=== PATIENT | male | born 1935 | race Caucasian/White ===

== ENCOUNTER 2018-01-27 18:10 | Observation (INO) | payer OTHER ==
--- NOTE | 2018-01-27 18:19 | EDPHY ---
H & P Stated Complaint: palpitations and light chest pressure for 2 days. Time Seen by Provider: 01/27/18 18:18 HPI/ROS: CHIEF COMPLAINT: Palpitations, weakness, chest pressure HISTORY OF PRESENT ILLNESS: The patient presents to the ED with a 2 day history of palpitations. Today the patient developed chest pressure that began at 5:00 p.m.. The patient reports he currently is experiencing no symptoms of chest pressure. He does have a history of coronary artery disease status post CABG 2000. He reports uneventful cardiac follow-up since that time. The patient did have a history of an upper respiratory infection approximately 2 weeks ago. The patient does feel generalized malaise and fatigue. The patient denies fever or productive cough. He denies asymmetric calf pain or swelling. The patient denies additional acute complaints. REVIEW OF SYSTEMS: A comprehensive 10 point review of systems is otherwise negative aside from elements mentioned in the history of present illness. Source: Patient Exam Limitations: No limitations - Personal History Current Tetanus Diphtheria and Acellular Pertussis (TDAP): Yes - Medical/Surgical History Hx Asthma: No Hx Chronic Respiratory Disease: No Hx Diabetes: No Hx Cardiac Disease: Yes Hx Renal Disease: No Hx Cirrhosis: No Hx Alcoholism: No Hx HIV/AIDS: No Hx Splenectomy or Spleen Trauma: No Other PMH: Bypass in 2000. HTN. - Social History Smoking Status: Never smoked - Physical Exam Exam: General Appearance: Alert, no distress Eyes: Pupils equal and round no pallor or injection ENT, Mouth: Mucous membranes moist Respiratory: There are no retractions, lungs are clear to auscultation Cardiovascular: Regular rate and rhythm Gastrointestinal: Abdomen is soft and nontender, no masses, bowel sounds normal Neurological: A&O, normal motor function, normal sensory exam, normal cranial nerves Skin: Warm and dry, no rashes Musculoskeletal: Neck is supple nontender Extremities: symmetrical, full range of motion Constitutional: Initial Vital Signs Temperature (C) 36.9 C 01/27/18 18:12 Heart Rate 97 01/27/18 18:12 Respiratory Rate 16 01/27/18 18:12 Blood Pressure 162/96 H 01/27/18 18:12 O2 Sat (%) 95 01/27/18 18:12 O2 Delivery Mode Room Air Allergies/Adverse Reactions: No Known Allergies Allergy (Unverified 04/27/15 11:33) Home Medications: Medication Instructions Recorded Hydralazine HCl 01/27/18 Lisinopril 01/27/18 Norvasc 10 mg (*) 01/27/18 Medical Decision Making - Diagnostics EKG Interpretation: EKG: Complete interpretation has been separately recorded in the [facility] archive. Summary impression: Sinus tachycardia, rate 97, multiple PVCs, no ST segment elevation depression noted Imaging Results: Imaging Impressions Chest X-Ray 01/27/18 19:00 Impression: No evidence of acute intrathoracic pathology. ED Course/Re-evaluation: The patient presents to the ED with chest pressure that began at 5 o'clock this evening. The patient does have a history of coronary artery disease. He reports he has had no history of angina since his bypass. The patient reports he has just felt generally poor and has had a significant increase in palpitations. The patient was noted to have PVCs on his EKG without evidence of obvious ischemia. He was noted to have multiple PVCs while on a color television console monitor. The patient's initial troponin is normal. Given the patient's history of coronary artery disease as well as unexplained chest pressure and frequent ventricular ectopy I do feel it would be reasonable to rule out the patient for myocardial infarction this evening. Consultation was made with Dr. Tyler Salomon from the hospitalist service who will admit the patient. Differential Diagnosis: Differential diagnosis considered includes acute coronary syndrome, arrhythmia, pericarditis, esophageal spasm, dehydration, viral syndrome, pneumonia - Data Points Laboratory Results: Laboratory Results 01/27/18 18:45 01/27/18 18:45 01/27/18 01/27/18 18:45 18:45 WBC 8.83 10^3/uL 10^3/uL (3.80-9.50) RBC 4.93 10^6/uL 10^6/uL (4.40-6.38) Hgb 15.3 g/dL g/dL (13.7-17.5) Hct 43.6 % % (40.0-51.0) MCV 88.4 fL fL (81.5-99.8) MCH 31.0 pg pg (27.9-34.1) MCHC 35.1 g/dL g/dL (32.4-36.7) RDW 13.1 % % (11.5-15.2) Plt Count 275 10^3/uL 10^3/uL (150-400) MPV 10.9 fL fL (8.7-11.7) Neut % (Auto) 50.4 % % (39.3-74.2) Lymph % (Auto) 37.0 % % (15.0-45.0) [place] % (Auto) 10.8 % % (4.5-13.0) Eos % (Auto) 1.0 % % (0.6-7.6) Baso % (Auto) 0.6 % % (0.3-1.7) Nucleat RBC Rel Count 0.0 % % (0.0-0.2) Absolute Neuts (auto) 4.45 10^3/uL 10^3/uL (1.70-6.50) Absolute Lymphs (auto) 3.27 10^3/uL H 10^3/uL (1.00-3.00) Absolute Monos (auto) 0.95 10^3/uL H 10^3/uL (0.30-0.80) Absolute Eos (auto) 0.09 10^3/uL 10^3/uL (0.03-0.40) Absolute Basos (auto) 0.05 10^3/uL 10^3/uL (0.02-0.10) Absolute Nucleated RBC 0.00 10^3/uL 10^3/uL (0-0.01) Immature Gran % 0.2 % % (0.0-1.1) Immature Gran # 0.02 10^3/uL 10^3/uL (0.00-0.10) Sodium 130 mEq/L L mEq/L (135-145) Potassium 3.6 mEq/L mEq/L (3.5-5.2) Chloride 90 mEq/L L mEq/L (97-110) Carbon Dioxide 27 mEq/l mEq/l (22-31) Anion Gap 13 mEq/L mEq/L (8-16) BUN 14 mg/dL mg/dL (7-23) Creatinine 0.8 mg/dL mg/dL (0.7-1.3) Estimated GFR > 60 Glucose 100 mg/dL mg/dL (70-100) Calcium 9.7 mg/dL mg/dL (8.5-10.4) Troponin I < 0.012 ng/mL ng/mL (0.000-0.034) Departure - Departure Disposition: Home, Routine, Self-Care Clinical Impression: Chest pain, PVCs (premature ventricular contractions) Condition: Good
--- NOTE | 2018-01-27 18:20 | CPEKG ---
Heart Rate: 97 RR Interval: 619 P-R Interval: 208 QRSD Interval: 102 QT Interval: 356 QTC Interval: 452 P [place]: 62 QRS [place]: 34 T Wave [place]: 67 EKG Severity - ABNORMAL ECG - EKG Impression: SINUS TACHYCARDIA EKG Impression: MULTIFORM VENTRICULAR PREMATURE COMPLEXES EKG Impression: PROBABLE LEFT ATRIAL ABNORMALITY Electronically Signed By: Filiberto Bello 27-Jan-2018 18:51:35
[2018-01-27 19:08] LABS: PLATELET COUNT 275 10^3/uL (150-400)
[2018-01-27] MEDS ORDERED: ACETAMINOPHEN 325 MG TAB PO PRN (22:23)
[2018-01-27] MEDS ORDERED: ONDANSETRON 4 MG/2 ML VIAL IVP PRN (22:23)
[2018-01-27] MEDS ORDERED: ONDANSETRON DISINTEGRATING 4 MG TAB PO PRN (22:23)
--- NOTE | 2018-01-28 01:24 | PDGENHP ---
History and Physical - Chief Complaint Chest pressure - History of Present Illness 82 yo M w/ hx of HTN and CAD s/p CABG in 2000 presents after episode of chest pressure. Patient has been recovering from a cold for about 10 days. Today he went for a walk and afterwards experienced an episode of chest pressure. This was centrally located without associated symptoms. The pain resolved without intervention. He has not had similar chest discomfort in the past and has been chest pain free since his bypass in 2000. He is followed by Dr. Gunnar Mars at [facility] and would prefer to defer any further testing until he can see him in clinic. History Information - Allergies/Home Medication List Allergies/Adverse Reactions: No Known Allergies Allergy (Unverified 04/27/15 11:33) Home Medications: Aspirin EC [Aspirin EC 81 mg (*)] 81 mg PO HS 01/27/18 [Last Taken 01/26/18] Hydrochlorothiazide [HCTZ (*)] 25 mg PO DAILY 01/27/18 [Last Taken 01/26/18] Lisinopril [Zestril 40 mg (*)] 40 mg PO HS 01/27/18 [Last Taken 01/26/18] Simvastatin [Zocor] 40 mg PO HS 01/27/18 [Last Taken 01/26/18] amLODIPine BESYLATE [Norvasc 10 mg (*)] 10 mg PO DAILY 01/27/18 [Last Taken 11/03] I have personally reviewed and updated: family history, medical history - Past Medical History coronary artery disease, hypertension - Surgical History Reports: coronary bypass surgery (2000) - Family History Positive for: CAD - Social History Smoking Status: Former smoker Review of Systems Review of Systems: ROS: 10pt was reviewed & negative except for what was stated in HPI & below Physical Exam Physical Exam: Temp Pulse Resp BP Pulse Ox 36.5 C 80 13 127/96 H 97 01/27/18 21:53 01/27/18 21:53 01/27/18 21:53 01/27/18 21:53 01/27/18 21:53 Constitutional: no apparent distress, not in pain Eyes: PERRL, EOMI Ears, Nose, Mouth, Throat: moist mucous membranes, no oral mucosal ulcers Cardiovascular: regular rate and rhythym, no murmur, rub, or gallop Respiratory: no respiratory distress, clear to auscultation Gastrointestinal: normoactive bowel sounds, soft, non-tender abdomen Skin: warm, normal color Musculoskeletal: full muscle strength, no muscle tenderness Neurologic: CN II-XII Intact Psychiatric: interacting appropriately, not anxious Lab Data & Imaging Review 01/27/18 18:45 01/27/18 18:45 WBC 8.83 10^3/uL (3.80-9.50) 01/27/18 18:45 RBC 4.93 10^6/uL (4.40-6.38) 01/27/18 18:45 Hgb 15.3 g/dL (13.7-17.5) 01/27/18 18:45 Hct 43.6 % (40.0-51.0) 01/27/18 18:45 MCV 88.4 fL (81.5-99.8) 01/27/18 18:45 MCH 31.0 pg (27.9-34.1) 01/27/18 18:45 MCHC 35.1 g/dL (32.4-36.7) 01/27/18 18:45 RDW 13.1 % (11.5-15.2) 01/27/18 18:45 Plt Count 275 10^3/uL (150-400) 01/27/18 18:45 MPV 10.9 fL (8.7-11.7) 01/27/18 18:45 Neut % (Auto) 50.4 % (39.3-74.2) 01/27/18 18:45 Lymph % (Auto) 37.0 % (15.0-45.0) 01/27/18 18:45 [place] % (Auto) 10.8 % (4.5-13.0) 01/27/18 18:45 Eos % (Auto) 1.0 % (0.6-7.6) 01/27/18 18:45 Baso % (Auto) 0.6 % (0.3-1.7) 01/27/18 18:45 Nucleat RBC Rel Count 0.0 % (0.0-0.2) 01/27/18 18:45 Absolute Neuts (auto) 4.45 10^3/uL (1.70-6.50) 01/27/18 18:45 Absolute Lymphs (auto) 3.27 10^3/uL (1.00-3.00) H 01/27/18 18:45 Absolute Monos (auto) 0.95 10^3/uL (0.30-0.80) H 01/27/18 18:45 Absolute Eos (auto) 0.09 10^3/uL (0.03-0.40) 01/27/18 18:45 Absolute Basos (auto) 0.05 10^3/uL (0.02-0.10) 01/27/18 18:45 Absolute Nucleated RBC 0.00 10^3/uL (0-0.01) 01/27/18 18:45 Immature Gran % 0.2 % (0.0-1.1) 01/27/18 18:45 Immature Gran # 0.02 10^3/uL (0.00-0.10) 01/27/18 18:45 Sodium 130 mEq/L (135-145) L 01/27/18 18:45 Potassium 3.6 mEq/L (3.5-5.2) 01/27/18 18:45 Chloride 90 mEq/L (97-110) L 01/27/18 18:45 Carbon Dioxide 27 mEq/l (22-31) 01/27/18 18:45 Anion Gap 13 mEq/L (8-16) 01/27/18 18:45 BUN 14 mg/dL (7-23) 01/27/18 18:45 Creatinine 0.8 mg/dL (0.7-1.3) 01/27/18 18:45 Estimated GFR > 60 01/27/18 18:45 Glucose 100 mg/dL (70-100) 01/27/18 18:45 Calcium 9.7 mg/dL (8.5-10.4) 01/27/18 18:45 Troponin I < 0.012 ng/mL (0.000-0.034) 01/27/18 18:45 Imaging Review: Imaging Impressions Chest X-Ray 01/27/18 19:00 Impression: No evidence of acute intrathoracic pathology. Visualized and Interpreted Chest x-ray results: Yes Visualized and Interpreted EKG results: Yes EKG Interpretation: Positive for: normal sinsus rhythm, other (Frequent PVCs) Assessment & Plan Assessment: 82 yo M w/ hx of HTN and CAD s/p CABG presents after episode of chest pressure. Plan: 1. Chest pain - Isolated episode of chest pressure occurring after a long walk. Patient has no history of stable angina and has had several normal stress tests in recent years per his report. Initial testing here negative for objective evidence of acute ischemia. ECG notable for frequent PVCs. Patient would like to defer additional testing until he can see his airline reservation agent Dr. Gunnar Mars in clinic. - Admit to PCU for observation - Monitor on telemetry, trend cardiac enzymes - Will defer inpatient risk stratification per patient wishes, although I did recommend this. If telemetry or AM enzymes are concerning, would revisit this conversation. 2. HTN - Well controlled on home medications Diet - NPO @ [place] pending ACS r/o Code - Full Ppx - LMWH Dispo - Admit under observation status
[2018-01-28 05:29] LABS: PLATELET COUNT 226 10^3/uL (150-400)
[2018-01-28 07:59] VITALS: BP 130/84; PULSE 80; RESP 16; TEMP 97.8; O2SAT 97
[2018-01-28] MEDS ORDERED: ENOXAPARIN 40 MG/0.4 ML SYR SC SCH (09:00)
--- NOTE | 2018-01-28 14:22 | ASDISCHSUM ---
Discharge Information Plan Status:Home with No Needs Medically Cleared to Leave:01/28/2018 Discharge Date:01/28/2018 10:45 AM CM D/C Disposition:Home, Routine, Self-Care ADT D/C Disposition:Home, Routine, Self-Care Projected Discharge Date:01/28/2018 10:45 AM Transportation at D/C:Family Discharge Delay Reason: Follow-Up Date:01/28/2018 10:45 AM Discharge Slot: Final Diagnosis: Placement Information Patient Contact Information Contact Name:CARMEN Relationship: Address:[address] Work Phone: City:[place] Alternate Phone: State/Zip Code:[place] [address] Email: Financial Information Financial Class:Medicare Advantage Plans Primary Plan Desc:[facility] ADVANTAGE PLANS Primary Plan Number:[id number] Secondary Plan Desc: Secondary Plan Number: Assessment Information Case Management Discharge Plan Note Case Management Discharge Discharge Order Complete? Answers: Yes Patient to Obtain Answers: Independently Medications Transportation Arranged Answers: Family/Friends Family Notified Answers: Yes Notes: in room Discharge Comments Notes: 01/28/2018 Case Management Note Met w/pt and Cynthia [phone]. Pt lives in a condo in [facility]. His does the majority of the driving. There are no difficulties getting to the grocery or preparing meals. There are no case management d/c needs identified. Pt to d/c independent with to transport. Pt to follow up as directed by medical providers. Date Signed: 01/28/2018 09:59 AM Electronically Signed By:Nicole Cervantes RN Intervention Information
[2018-01-28] MEDS ORDERED: ASPIRIN EC 81 MG TAB PO SCH (21:00)
--- NOTE | 2018-01-28 22:08 | GDS ---
[f rep st] DISCHARGE SUMMARY DISCHARGE DIAGNOSES: 1. Chest pain thought noncardiac. 2. Coronary artery disease. 3. Hypertension. HISTORY OF PRESENT ILLNESS: An 82-year-old male, with a history of coronary artery disease, status p ost CABG in 2000, who presents with atypical chest pain. For details of patient's initial presentati on, please see the history and physical dated 01/27/2018. CONSULTATIVE SERVICES: None. PROCEDURES: None. HOSPITAL COURSE: Chest pain. Patient presented with atypical complaint of chest pain. Patient had a preceding cold and then symptoms. Presented for evaluation. He was ruled out with serial troponin s and EKGs. He is followed closely by Dr. Gunnar Mars at [facility] to have any additional risk stratification or followup performed by his primary member services coordinator. Teri verde remained stable on telemetry, was chest pain free the morning after admission and per his vincent ce, was discharged to follow with Dr. Mars in the outpatient setting. On discharge, he is continued on his aspirin, hydrochlorothiazide, lisinopril, Zocor, and Norvasc. H is vital signs were normal on the day of discharge. MEDICATIONS: No changes were made to his home medications. PENDING STUDIES: At the time of the dictation are none. FOLLOWUP APPOINTMENTS: Include in the next 5-[address] Mars for his first post dispositio n followup and discussions related to risk stratification. I spent greater than 30 minutes in the planning and coordination of this discharge. /[id number]/MODL
[2018-01-29] MEDS ORDERED: HYDROCHLOROTHIAZIDE 25 MG TAB PO SCH (09:00)
== END 2018-01-28 10:45 | disposition home or self-care (01) ==
LOC: EDUNIT# → F2W 21:43
PROVIDERS: ADMIT Student in an Organized Health Care Education/Training Program; ATTEND Hospitalist
DX: R07.9 Chest pain, unspecified (principal); I25.10 Atherosclerotic heart disease of native coronary artery without angina pectoris; I10 Essential (primary) hypertension; Z79.82 Long term (current) use of aspirin; Z95.1 Presence of aortocoronary bypass graft
CPT/HCPCS: 71046; 93005; 99285; G0378

== ENCOUNTER 2018-02-03 09:00 | Inpatient (IN) | payer OTHER ==
--- NOTE | 2018-02-03 09:31 | EDPHY ---
General - History Smoking Status: Former smoker Time Seen by Provider: 02/03/18 09:13 Narrative: CHIEF COMPLAINT: Hallucinating HISTORY OF PRESENT ILLNESS: Patient presents with spouse. Spouse reports that he has been hallucinating and exhibiting cognitive decline as well as auscultation recently. The patient also knows he has been hallucinating. He says that they are primarily things that he hears. They are telling him that he is in danger or that his family is in danger. The hallucinations are telling him his son is doing illicit substances and is in danger. At that time the patient is not aware that they are not real. After discussing with his he feels that he understands that they are not real. Cannot control them and they have been worsening over the past few days. They have been present for several to 6 weeks. also reports that he is wondering outside the home, repeatedly looking for his keys while in his hand, dressing in the middle of the night at inappropriate times. He is very difficult to control at home due to this. At times he has lucid behavior with no change. She is concerned because this is been increasing in frequently recently and she concern for his health and well-being. She also reports occasional shortness of breath, palpitations, pale appearance. He has recently been evaluated for chest pain palpitations here on Friday with overnight admission. Reportedly discharged home after being ruled out from ACS. No previous or current psychiatric workup for this. PSYCHIATRIC DIAGNOSES: None PRIOR PSYCHIATRIC EVALUATIONS: None PAST MEDICAL HISTORY: Hypertension, dyslipidemia, coronary artery disease PCP: Dr. Argueta SPECIALISTS: Dr. Mars, Cardiology [facility] M1/DETAINER: Detainer by me at 9:30 a.m. Today for grave disability, and capable of making medical decisions REVIEW OF SYSTEMS: Ten systems reviewed and are negative unless otherwise noted in the HPI EXAMINATION General Appearance: Alert, no distress, well-developed well-nourished Head: normocephalic, atraumatic Eyes: Pupils equal and round, no conjunctival pallor or injection ENT, Mouth: Mucous membranes moist. Uvula midline. Neck: Normal inspection, supple, non-tender Respiratory: Lungs are clear to auscultation. No wheezing, rhonchi or crackles Cardiovascular: Tachycardic rate. Regular rhythm. Harsh systolic murmur. Gastrointestinal: Abdomen is soft and nontender Back: non-tender, no bony abnormalities Neurological: GCS 15. Cranial nerves 2-12 grossly intact. No pronator drift. Normal finger to nose. A&O, nonfocal, normal gait. Strength is symmetric in the 4 limbs. Skin: Warm and dry, no rash. Multiple sun spots. Extremities: Nontender, no pedal edema. Symmetric range of motion. Psychiatric: Mood and affect normal. Describes auditory hallucinations that he has insight to but cannot control when they occur. Denies SI. Denies HI. DIFFERENTIAL DIAGNOSES: Including but not limited to psychotic break, schizophrenia, dementia, delusions MDM: 9:30 a.m. Auditory hallucinations with reportedly intermittent palpitations, mental status changes and cognitive decline by the spouse. These have been present for nearly 4-6 weeks, but they have abruptly worsened over the past 2-3 days. He has normal vital signs and appears to be in no acute distress. His heart rate is mildly elevated 106, but he is alert to person, place and time. He is aware that he is having hallucinations but says that he cannot control them at the time of the happen, he cannot discern reality from hallucination. He also describes delusions that are concerning and/or threatening to him or his family. He has no evidence of stroke by neuro examination or history. I have ordered laboratory studies, CT of the head, chest x-ray and urine studies. The patient will be placed on a detained or at this time. Plan for psychiatric evaluation if he is medically cleared. 9:40 a.m. Case discussed with Dr. Poe. He recommends placing the patient on an M1 hold for grave disability. 10:15 a.m. Notified by radiologist Dr. Guthrie. CT scan of the head reveals atrophy, white matter change, atherosclerotic calcification of the vertebrals and paranasal sinus disease. No acute findings suspected. CBC is unremarkable. Chemistry reveals mildly low sodium 132. Chloride is also low at 90. I have ordered IV fluid 1 L. 10:30 a.m. Chest x-ray has been read as no acute findings. Chronic changes noted. Still waiting for urine sample from the patient 12:10 p.m. I have discussed the case with the patient's spouse. I have answered her questions regarding the CT scan, laboratory studies and chest x-ray. I informed her that the urinalysis is required prior to medical clearance for evaluation. This has been provided and is currently pending 12:25 p.m. Urine sample has been provided and is negative. There is 1+ ketone in the urine. Tox screen is negative. I do feel he is stable for evaluation and has been medically cleared at this time. 1:00 p.m. Patient re-evaluated. He was reportedly becoming more anxious and agitated per RN. I was asked to examine him. He is exhibiting further delusions. He feels that he has a meth lab in his home that no one knows about. His adamantly denies any history of drug use. He feels that there are people coming to hurt him because of this. EPS has been notified and they are reportedly going to evaluate him at 1:30 p.m.. 2:40 p.m. Patient has been evaluated by Migdalia ALFREDO. She has determined that the patient is a risk for flight and does exhibit hallucinations, delusions and psychosis. He is not altered mentation at this time but not stable for discharge home. They recommended the patient be admitted to the hospitalist with inpatient psychiatric evaluation. I discussed the case with the hospitalist Dr. Gore. He will admit the patient to his service. The patient is admitted in stable condition on an M1 hold to an ICU bed. SUPERVISION: Patient was independently examined, but I discussed the case with my secondary supervising physician Dr. Poe ([facility]) Medical Decision Makin:00 p.m. I evaluated this patient independently. He is clearly hallucinating about his son doing methamphetamine in the basement and a drug bust thus this morning and someone placing a wire tapped in his ear. He has very normal cognition and can answer all questions appropriately however. He is a and O x3. He does not appear lethargic or altered. He has not had any recent changes in his medications except in October he was switched from amlodipine to Norvasc. He states that he was switched because he was having hallucinations such as this. He has had normal lab work and CT imaging here. He was admitted last week for cardiac workup that was unremarkable. 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 2:40 p.m. We have spoke with mental health and Dr. Higginbotham as well. At this point will admit to the medical service on the hold and have Psychiatry consult. (Jovi Poe) - Objective Vital Signs: Initial Vital Signs Temperature (C) 36.5 C 02/03/18 09:03 Heart Rate 106 H 02/03/18 09:03 Respiratory Rate 18 02/03/18 09:03 Blood Pressure 168/114 H 02/03/18 09:03 O2 Sat (%) 95 02/03/18 09:03 O2 Delivery Mode Room Air Allergies/Adverse Reactions: No Known Allergies Allergy (Verified 02/03/18 09:03) Home Medications: Medication Instructions Recorded Aspirin EC [Aspirin EC 81 mg (*)] 81 mg PO HS 01/27/18 Hydrochlorothiazide [HCTZ (*)] 25 mg PO DAILY 01/27/18 Lisinopril [Zestril 40 mg (*)] 40 mg PO HS 01/27/18 Simvastatin [Zocor] 40 mg PO HS 01/27/18 amLODIPine BESYLATE [Norvasc 10 mg 10 mg PO DAILY 01/27/18 (*)] Laboratory Results: Laboratory Results 02/03/18 09:20 02/03/18 09:20 Medications Given: Discontinued Medications Amlodipine Besylate (Norvasc) 10 mg PO DAILY [facility] Stop: 08/03/18 08:59 Last Admin: 02/04/18 09:10 Dose: 10 mg Aspirin Buffered (Aspirin Ec) 81 mg PO HS [facility] Stop: 08/02/18 20:59 Last Admin: 02/03/18 21:44 Dose: 81 mg Atorvastatin Calcium (Lipitor) 20 mg PO HS [facility] Stop: 08/02/18 20:59 Last Admin: 02/03/18 21:44 Dose: 20 mg Enoxaparin Sodium (Lovenox) 40 mg SC DAILY [facility] Stop: 08/03/18 08:59 Last Admin: 02/04/18 09:11 Dose: 40 mg Sodium Chloride (Ns) 1,000 mls @ 0 mls/hr IV EDNOW ONE; Wide Open PRN Reason: Protocol Stop: 02/03/18 10:18 Last Admin: 02/03/18 10:27 Dose: 1,000 mls Lisinopril (Zestril) 40 mg PO HS [facility] Stop: 08/02/18 20:59 Last Admin: 02/03/18 23:23 Dose: Not Given Lorazepam (Ativan Injection) 0.5 mg IVP EDNOW ONE Stop: 02/03/18 12:04 Last Admin: 02/03/18 12:04 Dose: 0.5 mg Lorazepam (Ativan Injection) 1 mg IVP EDNOW ONE Stop: 02/03/18 14:31 Last Admin: 02/03/18 14:30 Dose: 1 mg Departure - Departure Disposition: [facility] Clinical Impression: Auditory hallucination 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
--- NOTE | 2018-02-03 09:39 | CPEKG ---
Heart Rate: 111 RR Interval: 541 P-R Interval: 168 QRSD Interval: 96 QT Interval: 340 QTC Interval: 462 P [place]: 61 QRS [place]: 0 T Wave [place]: 80 EKG Severity - ABNORMAL ECG - EKG Impression: SINUS TACHYCARDIA EKG Impression: VENTRICULAR TRIGEMINY EKG Impression: PROBABLE LVH WITH SECONDARY REPOL ABNRM Electronically Signed By: Jovi Poe 03-Feb-2018 09:48:24
[2018-02-03 09:41] LABS: PLATELET COUNT 295 10^3/uL (150-400)
[2018-02-03] MEDS ORDERED: NS 1,000 ML IV ONE (10:17)
[2018-02-03] MEDS ORDERED: LORazepam 2 MG/ML INJ ONE ×2 (11:53→14:27)
[2018-02-03] MEDS ORDERED: LORazepam 2 MG/ML INJ IVP ONE ×2 (12:03→14:30)
[2018-02-03] MEDS ORDERED: ONDANSETRON 4 MG/2 ML VIAL IVP PRN (16:19)
[2018-02-03] MEDS ORDERED: ACETAMINOPHEN 325 MG TAB PO PRN (16:19)
[2018-02-03] MEDS ORDERED: PROMETHAZINE HCL 25 MG/ML INJ IVP PRN (16:19)
--- NOTE | 2018-02-03 16:36 | GHP ---
[f rep st] HISTORY AND PHYSICAL DATE OF ADMISSION: 02/03/2018 CHIEF COMPLAINT: Delusions and altered mental status. HISTORY OF PRESENT ILLNESS: This is an 82-year-old male with history of hypertension, coronary artery disease with bypass in 2000 and hypertension, who was treated at [facility] on 01/27/2018 after he presented to the hospital with chest pain and was ultimately ruled out for LA and discharged home. The patient presents today with altered mental status. The patient's states that he had started to develop some delusions that started back in November where he thought that his son was using methamphetamine. Over the past few days, these delusions have been getting worse. Last night, the patient became very agitated and afraid since he thought the police were raiding his house. His delusions tend to be worse in the evening, but then he is able to fall asleep, but is often awakened in the middle night when he starts to hear voices. He has not been seen by a psychiatrist. The patient's thinks that his delusions and confusion escalated a few months back after having some of his cardiac medications changed. He does not drink alcohol. He is a professor and still actively writes. PAST MEDICAL HISTORY: 1. Coronary artery disease. 2. Hypertension. PAST SURGICAL HISTORY: Coronary artery bypass grafting in 2000. HOME MEDICATIONS: Reviewed. Refer to [facility] for details. ALLERGIES: No known drug allergies. SOCIAL HISTORY: He lives in [place] with his and son. He drinks alcohol occasionally. No history of tobacco or illicit drug use. FAMILY HISTORY: Reviewed and noncontributory. REVIEW OF SYSTEMS: A comprehensive 10-point review of systems was done and is negative, except for as mentioned in the HPI. PHYSICAL EXAMINATION: VITAL SIGNS: Blood pressure 125/73, pulse of 110, respiratory rate 16, O2 saturation 94% on room air. Temperature afebrile. GENERAL: No acute distress. HEAD: Normocephalic, atraumatic. EYES: PERRLA. Sclerae anicteric. MOUTH: Moist mucous membranes. NECK: Supple. No lymphadenopathy. CARDIOVASCULAR: S1-S2. No murmurs, rubs, clicks, gallops. No JVD. No lower extremity edema. PULMONARY: Lungs are clear. No wheezes, rales, or rhonchi. ABDOMEN: Soft, nontender, nondistended. No guarding or rebound tenderness. Normoactive bowel sounds. EXTREMITIES: No clubbing or cyanosis. NEURO: Cranial nerves 2-12 grossly intact. Face is symmetric. Moves all extremities. The patient is not very talkative during my exam, and his is answering most of the questions. SKIN: Clear. No rashes. DIAGNOSTICS: WBC is 8.5, hemoglobin 15.8, hematocrit 45.7, platelets 295. Sodium 132, potassium 3.7, chloride 90, CO2 23, BUN 12, creatinine 0.8, glucose 133, LFTs unremarkable. UA done today 1+ ketones. Urine tox screen was unremarkable. Head was reviewed showing moderate advanced senescent features with no acute intercranial abnormalities. EKG, which I visualized and personally interpreted, shows sinus tachycardia, rate of 101 beats per minute with ventricular trigeminy. Chest x-ray: No active cardiopulmonary disease. ASSESSMENT AND PLAN: 1. This is an 82-year-old male presenting to the emergency department with worsening delusions and auditory hallucinations. Concerning for sundowning given the history without any obvious acute medical condition causing delirium. At this time, the patient will be admitted to the hospital for further evaluation. He has been placed on M1 hold and will have to go to the ICU. He has been evaluated by Behavioral Health who did not seem to think that he met inpatient behavioral health criteria. Ultimately, I think this patient would benefit from a [facility] psych consultation as well as an evaluation by a neurologist which I will order. 2. History of coronary artery disease and hypertension that appear to be controlled. We will continue home medications and monitor. 3. Mild hyponatremia. Hold HCT and Monitor. 4. Ketonuria which could be due to poor oral intake. I will order a regular diet. It is possible that the patient's condition could be exacerbated by malnutrition. DISPOSITION: The patient will be admitted to the hospital under inpatient status since I suspect he will require hospital stay through 2 midnights given the severity of his symptoms and his inability to function in his current living situation. /[id number]/MODL MTDD
--- NOTE | 2018-02-03 17:41 | PDMN ---
Medical Necessity Medical necessity: M590 Delirium- 3 days- uncertain etiology worsening delusions and auditory hallucinations. further monitoring, eval and tx needed anticipate > 2 midnights M1 hold placed.
[2018-02-03] MEDS ORDERED: ASPIRIN EC 81 MG TAB PO SCH (21:00)
[2018-02-03] MEDS ORDERED: ATORVASTATIN CALCIUM 20 MG TAB PO SCH (21:00)
[2018-02-03] MEDS ORDERED: LISINOPRIL 40 MG TAB PO SCH (21:00)
[2018-02-04 01:42] VITALS: PULSE 85; TEMP 97.9
[2018-02-04 05:36] LABS: PLATELET COUNT 233 10^3/uL (150-400)
[2018-02-04 08:51] VITALS: BP 130/84; RESP 18; O2SAT 97
[2018-02-04] MEDS ORDERED: ENOXAPARIN 40 MG/0.4 ML SYR SC SCH (09:00)
--- NOTE | 2018-02-04 10:01 | GCON ---
[f rep st] CONSULTATION NEUROLOGY CONSULT REFERRING PHYSICIAN: Garrison Gore DO CHIEF COMPLAINT: Delusions. 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 He has no psychiatric or neurologic history. He has no history of cognitive impairment or memory loss over the last month or years. He has no family history of psychiatric or neurologic disorders. However, he does have significant psychosocial stressors in that their grown son lives with him and his in a condo in [place]. His son, they tell me is an admitted attorneys who is a known alcoholic. They are also concerned that he may be using methamphetamine. This is the primary stressor in their life. This has been an ongoing stressor for the patient. He is not confirmed that he is using methamphetamine. They have confirmed that his son is an alcoholic. A medical factor is that he had been put on clonidine in September of last year and taken off in November. While on clonidine, he began having some abnormal dreams or thoughts, which improved when switched to amlodipine. However, with the ongoing stress related to their son, the patient began having insomnia and recurrent obsessions whether his son and his son's friend were making meth in their condo. This led to insomnia and decreased sleep. This cycle started perpetuating with insomnia, which then led to increased stress into an acute stress reaction, which then led to decreased sleep and started cycling into a nata philip with voluminous speech. His describes the patient spinning together narratives about a potential meth lab with all sorts of details that had no grounding in reality. This escalated to the point where the patient claimed that there was an ear piece in his ear where he could hear bits of the story that his could not substantiate, i.e. delusions, but no nata auditory hallucinations. As this escalated, his brought him into the ER yesterday because he was not sleeping. After a good night's sleep yesterday, he is back to his baseline. He is lucid. He no longer has delusions. He completely recalls all the delusions and behaviors last night. He is not amnestic from it. He just feels that the stress pushed him into an abnormal form of thinking. There have been no memory problems, tremors, etc in the last month or years. REVIEW OF SYSTEMS: Ten-point review of system was done, only pertinent to the HPI. For past medical history, social history, family history, home medications, allergies, see Dr. Gore's H and P. PHYSICAL EXAMINATION: VITAL SIGNS: Blood pressure is 124/77, temperature is 36.6, heart rate in the 80s, respirations 16. GENERAL: No acute distress. Very pleasant. Higher mental function. He is awake and alert. He is lucid. He is clear. He is not tangential. He has no aphasia. He can follow commands. Repeat speech is normal, not pressured. Affect is normal. Cranial nerve exam is normal 2 through 7. Motor exam normal strength, tone, reflexes throughout. Sensation is normal in all 4 extremities. No extinction. Coordination is normal in all 4 extremities. 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 IMPRESSION AND PLAN: 1. Acute stress reaction. Overall, my impression is that the patient is having acute stress reaction related to the psychosocial stressors related to their son. Please see above. This has escalated to manic and psychotic symptoms as described above. Certainly, the clonidine may have played a role in susceptibility for the escalation of some of these symptoms. He is no longer on this medication. Based on his entire history, it does not appear he has an underlying neurodegenerative condition. However, I would like to see him in 4-8 weeks to ensure there is nothing ongoing from a neurologic standpoint. We will call him and arrange that followup. We did review his head CT without contrast which showed age-related changes and no acute findings. I recommend consultation with Behavioral Health for further evaluation and treatment of this acute stress reaction type symptoms. No further recommendations. We will sign off and follow up as needed. Please do not hesitate to call if there are any questions or changes in neurologic status with this very pleasant patient. Thank you for the consultation. Seventy total minutes floor time reviewing the patient's imaging, records, history, direct counseling with the patient and his and coordination of care. /[id number]/MODL AYALA
--- NOTE | 2018-02-04 10:03 | ASMTCASEMG ---
Living Arrangements What is your living Answers: With Spouse arrangement? Who do you live with? Type Of Residence What kind of residence do Answers: House you live in? Discharge Plan Comments Coordination Status Comments Notes: Patient is an 82yo male who was admitted for psychosis. He has been placed on an M1 hold and evaluated by [facility]. A psychiatry consult has been ordered as well. PT/OT have been ordered. D/C plan TBD. Most likely patient will need a geriatric psych placement. CM will follow. Date Signed: 02/04/2018 10:03 AM Electronically Signed By:Gena Ordonez LCSW
--- NOTE | 2018-02-04 13:12 | GDS ---
[f rep st] DISCHARGE SUMMARY ALL DIAGNOSES: 1. Acute psychotic episode. 2. Stress reaction. 3. History of coronary artery disease. 4. History of hypertension. 5. Mild hyponatremia. HOSPITAL COURSE: 82-year-old man under significant stress due to family issues presents with acute p sychosis. He had had some delusions that his son had been using methamphetamines, even had a lab. H e has heard voices that have not been present. He had no history of psychiatric disease previously. He had not slept for days before, he had been so concerned about his son. His son does have a signi ficant alcohol problem which has been, for some time, a significance source of stress to the family. He has been seen by Neurology, as well as a [facility] with Psychiatry. Do not feel that any acute interve ntion is warranted other than referral to outpatient services to manage his significant stress. Does not seem to be a primary psychosis at this point. When I am seeing him, he is completely alert, no longer suffering delusions, no longer hearing voices. He is accompanied by his . He was placed on an M1 hold, which has been lifted by Psychiatry. He has outpatient followup with Dr. Mars, [place] [employer] supervisor, for recent episode of chest pain. He will be discharged with no changes in his medic ations. He will follow up with Dr. Argueta for ongoing management of his chronic medical problems. FOLLOWUP: 1. Dr. Argueta for medical problems. 2. Outpatient followup for his stress reaction per [facility]. 3. Dr. Mars with Cardiology for his coronary artery disease, and recent episode of chest pain. BILLING: I spent more than 30 minutes on the day of discharge coordinating care. The patient improv ed significantly faster than would have been expected given his dramatic presentation. /[id number]/MODL
== END 2018-02-04 13:46 | disposition home or self-care (01) | DRG 885 ==
LOC: EEVIPCON 14:46 → F2N 16:38
PROVIDERS: ADMIT Family Medicine; ATTEND Family Medicine
DX: F23 Brief psychotic disorder (principal); F43.9 Reaction to severe stress, unspecified; R49.22 Hyponasality; I10 Essential (primary) hypertension; I25.10 Atherosclerotic heart disease of native coronary artery without angina pectoris; E78.5 Hyperlipidemia, unspecified
CPT/HCPCS: 80305; 82607-90; 96374; G0480; J1650; J2060